=== PATIENT | male | born 1990 | race Two or more races ===

== ENCOUNTER 2019-04-20 16:22 | Emergency (ER) | payer SELFPAY ==
[2019-04-20] MEDS ORDERED: Diphtheria,Pertussis(Acell),Tetanus Vaccine 0.5 ML Syringe IM ONE (16:29)
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
[2019-04-20] MEDS ORDERED: Bacitracin Oint 1 GM U/D Packet TOP ONE (16:30)
== END 2019-04-20 17:03 | disposition home or self-care (01) ==
LOC: MW.ED 16:22
DX: T75.4XXA Electrocution, initial encounter (principal); S41.132A Puncture wound without foreign body of left upper arm, initial encounter; S31.030A Puncture wound without foreign body of lower back and pelvis without penetration into retroperitoneum, initial encounter; Z23 Encounter for immunization; Y35.831A Legal intervention involving a conducted energy device, law enforcement official injured, initial encounter
CPT/HCPCS: 82962; 90471; 90715; 99282; 99283-25

== ENCOUNTER 2019-04-25 14:25 | Emergency (ER) | payer OTHER ==
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
--- NOTE | 2019-04-25 16:31 | CT ---
Indication: Pain. Status post trauma. Technique: Multiple contiguous axial images were obtained from the lung bases through the symphysis pubis without intravenous contrast enhancement. Please note that all CT scans at this facility use dose modulation, iterative reconstruction, and/or weight-based dosing when appropriate to reduce radiation dose to as low as reasonably achievable. Comparison: None Findings: The lung bases are clear. No infiltrate, pleural effusion, or pneumothorax is identified. The heart is normal in size. No pericardial effusion is identified. The unenhanced liver, gallbladder, spleen, pancreas, adrenals, and kidneys are normal. No intrahepatic biliary ductal dilatation is identified. No hydronephrosis is identified. In the pelvis, the bladder is distended. The prostate gland is grossly normal. The small and large bowel are normal in caliber. A moderate to large amount of stool is identified within the colon. No free air or free fluid is identified within the abdomen or pelvis. Both femoral heads are seated within the acetabula. No lytic or blastic lesions of the spine are identified. Impression: No evidence of injury of the abdomen or pelvis. Please note that all CT scans at this facility use dose modulation, iterative reconstruction, and/or weight-based dosing when appropriate to reduce radiation dose to as low as reasonably achievable. Dictated by Keysha Hu MD @ Apr 25 2019 4:27PM Signed by Dr. Keysha Hu @ Apr 25 2019 4:30PM
--- NOTE | 2019-04-25 16:33 | CT ---
INDICATION: Head injury. TECHNIQUE: Scanning of the head was performed without IV contrast material. Coronal and sagittal reconstructions were obtained. COMPARISON: None. FINDINGS: No intracranial hemorrhage is demonstrated. No mass effect or ventricular enlargement is evident. No calvarial or obvious facial fracture is identified. The visualized paranasal and mastoid sinuses are clear. IMPRESSION: Negative noncontrast head CT. Please note that all CT scans at this facility use dose modulation, iterative reconstruction, and/or weight-based dosing when appropriate to reduce radiation dose to as low as reasonably achievable. Dictated by Braulio Acevedo MD @ Apr 25 2019 4:31PM Signed by Dr. Braulio Acevedo @ Apr 25 2019 4:33PM
== END 2019-04-25 17:00 | disposition home or self-care (01) ==
LOC: MW.ED 14:25
DX: S06.0X9A Concussion with loss of consciousness of unspecified duration, initial encounter (principal); S20.219A Contusion of unspecified front wall of thorax, initial encounter; F17.210 Nicotine dependence, cigarettes, uncomplicated; Z88.0 Allergy status to penicillin; Y35.811A Legal intervention involving manhandling, law enforcement official injured, initial encounter
CPT/HCPCS: 70450; 70450-26; 71046; 71046-26; 74176; 74176-26; 99283; 99285-25

== ENCOUNTER 2019-05-07 09:33 | Emergency (ER) | payer MEDICAID, OTHER ==
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
--- NOTE | 2019-05-07 10:42 | CT ---
Head CT Technique: Multiple axial sections through the brain were obtained. Intravenous contrast was not utilized. Comparison: Prior head CT study of 04/25/19. Findings: Ventricles along with basal cisterns and sulci over the convexities appear within normal limits for the patient's age. No abnormal parenchymal densities are seen. No evidence of intracranial hemorrhage. No midline shift or mass effect is seen. Focal soft tissue swelling is seen within the posterior left scalp. Bone window settings were reviewed. No acute calvarial abnormality is seen. Mastoid sinuses are clear. Paranasal sinuses that are seen show nothing acute. Impression: 1. Soft tissue swelling within the posterior left scalp. 2. No acute intracranial abnormality is identified. Diagnostic code #2 This report was dictated in [place] Standard Time
--- NOTE | 2019-05-07 10:42 | CT ---
CT cervical spine Technique: Multiple axial sections were obtained from above C1 inferiorly to the top of T4. Reconstructed coronal and sagittal images were obtained. Comparison: No prior cervical spine imaging is available. Findings: Vertebral body heights and disc spaces are maintained. No fracture is identified. No bony central or bony neural foraminal stenosis is seen. Visualized lung apices are clear. No abnormal subluxation is seen. Impression: 1. Nothing acute is appreciated on CT study of the cervical spine. Diagnostic code #1 This report was dictated in [place] Standard Time
[2019-05-07 11:19] LABS: BLOOD UREA NITROGEN,BUN 10 mg/dL (7.0-18.0); CARBON DIOXIDE,CO2 28.1 mmol/L (21.0-32.0); CHLORIDE,CL 105 mmol/L (98-107); GLUCOSE RANDOM 93 mg/dL (74-106); POTASSIUM,K 3.9 mmol/L (3.5-5.1); SODIUM,NA 142 mmol/L (136-148)
[2019-05-07] MEDS ORDERED: Lidocaine 1% with EPINEPHrine 1:100,000 20 ML MDV INJECT ONE (12:36)
[2019-05-07] MEDS ORDERED: Erythromycin Ethylsuccinate Susp 200 MG/5 ML 100 ML Bottle PO ONE (13:40)
[2019-05-07] MEDS ORDERED: Azithromycin 250 MG Tab PO STA (14:16)
== END 2019-05-07 14:33 | disposition home or self-care (01) ==
LOC: MW.ED 09:33
DX: S06.0X1A Concussion with loss of consciousness of 30 minutes or less, initial encounter (principal); S01.01XA Laceration without foreign body of scalp, initial encounter; Z88.0 Allergy status to penicillin; Y04.0XXA Assault by unarmed brawl or fight, initial encounter; W22.8XXA Striking against or struck by other objects, initial encounter
CPT/HCPCS: 12002; 36415; 70450; 72125; 80053; 80305; 85025; 99284; A9270; 99283

== ENCOUNTER 2021-07-25 14:58 | Emergency (ER) | payer SELFPAY | END 2021-07-25 15:12 | LOC: MW.ED 14:58 | DX: Z02.89 Encounter for other administrative examinations (principal); Z88.0 Allergy status to penicillin | CPT/HCPCS: 99281; 99282 ==